=== PATIENT | male | born 1965 | race Caucasian/White ===

== ENCOUNTER 2017-11-24 03:12 | Emergency (ER) | payer SELFPAY ==
[2017-11-24 03:19] VITALS: BP 149/93
[2017-11-24] MEDS ORDERED: Lidocaine 2% EPI 1:200000 MPF*10-20 ML VIAL ONE (03:50)
[2017-11-24] MEDS ORDERED: Lidocaine 2% EPI 1:200000 MPF*10-20 ML VIAL INJ ONE (03:50)
--- NOTE | 2017-11-24 04:18 | ED ---
Laceration/Wound HPI - HPI Summary HPI Summary: The patient presented 2 hours after injuring his left thumb while working at a local [employer] project. He inadvertently caught it against the sharp edge of a metal stud. He does not have any symptoms suggestive of nerve or tendon injury. - History of Current Complaint Stated Complaint: LT HAND INJURY Time Seen by Provider: 11/24/17 03:49 Pain Intensity: 2 - Allergy/Home Medications Allergies/Adverse Reactions: Allergies Allergy/AdvReac Type Severity Reaction Status Date / Time codeine Allergy Itching Verified 11/24/17 03:16 Home Medications: Home Medications NK [No Home Medications Reported] 11/24/17 [History Confirmed 11/24/17] PMH/Surg Hx/FS Hx/Imm Hx Endocrine/Hematology History: Denies: Hx Diabetes - Immunization History Date of Tetanus Vaccine: 2015 Infectious Disease History: No Infectious Disease History: Denies: Traveled Outside the [place] in Last 30 Days - Social History Alcohol Use: Occasionally Substance Use Type: Reports: None Smoking Status (MU): Heavy Every Day Tobacco Smoker Review of Systems - ROS Summary Review of Systems Summary: Limited by complaint Skin: Other - laceration Neurological: Negative Negative: Paresthesia, Numbness All Other Systems Reviewed And Are Negative: No Physical Exam - Summary Physical Exam Summary: Limited by complaint Examination of the left thumb reveals a 3 cm laceration crossing the IP joint of the left thumb on the radial aspect. There is some active bleeding but no large hemorrhage. The wound is oriented on the long axis of the finger. Vital Signs On Initial Exam: Initial Vitals Temp Pulse Resp BP Pulse Ox 36.3 C 86 18 149/93 97 11/24/17 03:17 11/24/17 03:17 11/24/17 03:17 11/24/17 03:17 11/24/17 03:17 Procedures - Laceration/Wound Repair 1 Location: Other - left thumb Description: Linear Anesthesia: Local, 2.0%, Epi Length, Depth and Shape: 3 cm Betadine Prep?: Yes Laceration/Wound Explored: clean Closure: Single Layer Suture Type: Nylon Number of Sutures: 4 Diagnostics - Vital Signs Vital Signs Temp Pulse Resp BP Pulse Ox 11/24/17 03:17 36.3 C 86 18 149/93 97 - Laboratory Lab Statement: Any lab studies that have been ordered have been reviewed, and results considered in the medical decision making process. Laceration Repair Course/Dx - Clinical Impression Provider Diagnoses: Laceration of left thumb Discharge - Sign-Out/Discharge Documenting (check all that apply): Discharge/Admit/Transfer - Discharge Plan Condition: Good Disposition: HOME Patient Education Materials: Care For Your Stitches (ED) Referrals: No Primary Care Phys,NOPCP [Primary Care Provider] - Additional Instructions: The sutures will need to be removed in approximately one week. - Billing Disposition and Condition Condition: GOOD Disposition: Home
== END 2017-11-24 04:33 | disposition home or self-care (01) ==
LOC: ED 03:12
DX: S61.012A Laceration without foreign body of left thumb without damage to nail, initial encounter (principal); W26.8XXA Contact with other sharp object(s), not elsewhere classified, initial encounter; Y93.H3 Activity, building and construction; Y92.9 Unspecified place or not applicable; F17.200 Nicotine dependence, unspecified, uncomplicated; Z88.5 Allergy status to narcotic agent
CPT/HCPCS: 12002; 99282